=== PATIENT | male | born 1965 | race Native Hawaiian/Other Pacific Islander ===

== ENCOUNTER 2017-01-24 07:11 | Outpatient (CLI) | payer OTHER ==
[~2017-01-24 07:11] MED LIST: BENICAR40 MG PO; DEXL60CA4 PO; FINA5TAB2 PO; LISI20TA24 PO; METF500T PO; SIMV20TA2 PO
== END 2017-01-24 19:58 | disposition home or self-care (01) ==
LOC: MRI 07:11
DX: R41.3 Other amnesia (principal); R53.1 Weakness; R26.89 Other abnormalities of gait and mobility; I63.8 Other cerebral infarction

== ENCOUNTER 2019-08-25 14:25 | Outpatient (CLI) | payer OTHER | END 2019-08-25 22:35 | disposition home or self-care (01) | LOC: LABW 14:25 | DX: R50.9 Fever, unspecified (principal); M79.10 Myalgia, unspecified site | CPT/HCPCS: 87502 ==

== ENCOUNTER 2020-08-25 14:42 | Outpatient (CLI) | payer OTHER | END 2020-08-25 21:40 | disposition home or self-care (01) | LOC: RAD 14:42 | PROVIDERS: ATTEND Internal Medicine | DX: M25.511 Pain in right shoulder (principal); M25.531 Pain in right wrist; V86.99XA Unspecified occupant of other special all-terrain or other off-road motor vehicle injured in nontraffic accident, initial encounter ==

== ENCOUNTER 2021-08-01 19:14 | Emergency (ER) | payer OTHER ==
[~2021-08-01] VITALS: Ht 182.9 cm; Wt 88.5 kg
[2021-08-01 19:50] LABS: PLATELET COUNT 178 K/uL (142-355)
[2021-08-01 19:59] LABS: POTASSIUM 3.9 mmol/L (3.6-5.2)
[2021-08-01 21:05] VITALS: BP 121/76; TEMP 97.9
== END 2021-08-01 21:05 | disposition home or self-care (01) ==
LOC: ED 19:14
PROVIDERS: Hospitalist
DX: K52.89 Other specified noninfective gastroenteritis and colitis (principal); R11.2 Nausea with vomiting, unspecified; R19.7 Diarrhea, unspecified; Z20.822 Contact with and (suspected) exposure to COVID-19
CPT/HCPCS: 36415; 80053; 81000; 83690; 85027; 87635; 96360; 96365; 96375; 99284; J0696; J2405; U0003